=== PATIENT | female | born 1965 | race Caucasian/White ===

== ENCOUNTER 2021-03-04 16:03 | Emergency (ER) | payer OTHER ==
[~2021-03-04 16:03] MED LIST: Sodium Chloride 0.9% 100 ML BAG ONE
[2021-03-04] MEDS ORDERED: Iopamidol 370 76% 125 ML VIAL FS ONE (16:04)
[2021-03-04 17:58] LABS: #Basophils 0.1 thou/uL (0.0-0.2); #Lymphocytes 2.7 thou/uL (1.20-3.40); #Monocytes 0.7 thou/uL (0.11-0.59); #Neutrophils 6.2 thou/uL (1.40-6.50); %Basophils 0.8 % (0.0-1.0); %Eosinophils 0.3 % (0.0-10.0); %Lymphocytes 27.5 % (21.0-51.0); %Monocytes 7.6 % (0.0-10.0); %Neutrophils 63.7 % (42.0-75.0); Hemoglobin 14.6 g/dL (12.0-16.0); Mean Corpuscular HGB CONC 32.3 g/dL (32.0-36.0); Mean Corpuscular Hemoglobin 28.8 pg (27.0-31.0); Mean Corpuscular Volume 89.2 fL (78.0-98.0); Mean Platelet Volume 7.5 fL (7.4-10.4); Platelet Count 211 thou/uL (130-400); RBC Distribution Width 13.6 % (11.5-14.5); Red Blood Cell (RBC) Count 5.07 mill/uL (4.20-5.40); White Blood Cell (WBC) Count 9.7 thou/uL (4.8-10.8)
[2021-03-04] MEDS ORDERED: Aspirin Chewable 81 MG TAB ONE (18:00)
[2021-03-04] MEDS ORDERED: Ketorolac Tromethamine 30 MG/ML VIAL ONE (18:00)
[2021-03-04 18:05] LABS: PTT 39.2 sec (22.9-36.1); Prothrombin Time 13.6 sec (12.0-14.7)
[2021-03-04 18:10] LABS: Anion Gap 16 mmol/L (10-20); BUN (Urea Nitrogen) 8 mg/dL (9.8-20.1); Calc. Creatinine Clearance 0 mL/min (70-130); Calcium 9.9 mg/dL (7.8-10.44); Carbon Dioxide 25 mmol/L (22-29); Chloride 103 mmol/L (98-107); Glucose 95 mg/dL (70-105); Sodium 140 mmol/L (136-145)
[2021-03-04] MEDS ORDERED: Enoxaparin Sodium 100 MG/ML SYRINGE ONE (18:28)
== END 2021-03-04 19:15 | disposition home or self-care (01) ==
LOC: MADERS 16:03
DX: I26.99 Other pulmonary embolism without acute cor pulmonale (principal); I25.2 Old myocardial infarction; E78.5 Hyperlipidemia, unspecified; E78.00 Pure hypercholesterolemia, unspecified; F17.210 Nicotine dependence, cigarettes, uncomplicated; Z79.891 Long term (current) use of opiate analgesic; Z79.82 Long term (current) use of aspirin; Z79.899 Other long term (current) drug therapy
CPT/HCPCS: 71275; 80048; 84484; 85025; 85610; 85730; 93005; 94760; 96372; 96374; J1650; J1885; J3490; Q9967

== ENCOUNTER 2023-06-27 10:10 | Emergency (ER) | payer OTHER, SELFPAY ==
[~2023-06-27 10:10] MED LIST changes: +Iopamidol 370 76% 100 ML VIAL ONE; -Sodium Chloride 0.9% 100 ML BAG ONE
[2023-06-27] MEDS ORDERED: Ipratropium/Albuterol 3 ML NEB ONE (10:36)
[2023-06-27 11:13] LABS: ALT (SGPT) 39 U/L (8-55); AST (SGOT) 27 U/L (5-34); Albumin 3.9 g/dL (3.5-5.0); Alkaline Phosphatase 161 U/L (40-110); Anion Gap 19 mmol/L (10-20); BUN (Urea Nitrogen) 10 mg/dL (9.8-20.1); Bilirubin, Total 0.4 mg/dL (0.2-1.2); Calc. Creatinine Clearance 0 mL/min (70-130); Calcium 9.2 mg/dL (7.8-10.44); Carbon Dioxide 22 mmol/L (22-29); Chloride 104 mmol/L (98-107); Estimated GFR 102; Globulin 3.5 g/dL (2.4-3.5); Glucose 117 mg/dL (70-105); Potassium 4.5 mmol/L (3.5-5.1); Protein, Total 7.4 g/dL (6.0-8.3); Sodium 140 mmol/L (136-145); Troponin I 0.092 ng/mL (< 0.028)
[2023-06-27 11:18] LABS: Eosinophils 3 % (0-10); Hematocrit 40.1 % (36.0-47.0); Hemoglobin 12.7 g/dL (12.0-16.0); Lymphocytes 6 % (21-51); MDiff Complete? YES; Mean Corpuscular HGB CONC 31.7 g/dL (32.0-36.0); Mean Corpuscular Hemoglobin 28.7 pg (27.0-31.0); Mean Corpuscular Volume 90.6 fl (78.0-98.0); Mean Platelet Volume 7.9 fL (7.4-10.4); Monocytes 2 % (0-10); Neutrophil 83 % (42-75); Platelet Count 203 10x3/uL (130-400); RBC Distribution Width 12.8 % (11.5-14.5); Red Blood Cell (RBC) Count 4.43 mill/uL (4.20-5.40); White Blood Cell (WBC) Count 16.1 10x3/uL (4.8-10.8)
[2023-06-27 11:19] LABS: Manual Diff?? YES; RBC Morph Comment Within Normal Limits; Reactive Lymphocytes 6 % (0-10)
[2023-06-27 11:20] LABS: Platelet Adequacy Comment Appears Adequate
[2023-06-27 11:24] LABS: SARS-CoV-2 NAA Rapid Test Not Detected (NotDetected)
[2023-06-27] MEDS ORDERED: Azithromycin 500 MG VIAL ONE (11:30)
[2023-06-27] MEDS ORDERED: Sodium Chloride 0.9% 100 ML ONE (11:31)
[2023-06-27] MEDS ORDERED: cefTRIAXone (ROCEPHIN) 2 GM VIAL ONE (11:31)
[2023-06-27] MEDS ORDERED: Sodium Chloride 0.9% 250 ML 250 ML ONE (11:31)
[2023-06-27] MEDS ORDERED: Morphine 4 MG/ML VIAL ONE (14:48)
[2023-06-27] MEDS ORDERED: dilTIAZem 25 MG/5 ML VIAL ONE (17:09)
== END 2023-06-27 18:20 | disposition short-term general hospital (02) ==
LOC: MADERS 10:10
DX: J18.9 Pneumonia, unspecified organism (principal); I26.99 Other pulmonary embolism without acute cor pulmonale; I10 Essential (primary) hypertension; Z20.822 Contact with and (suspected) exposure to COVID-19; Z79.82 Long term (current) use of aspirin; Z87.891 Personal history of nicotine dependence
CPT/HCPCS: 71045; 71275; 80053; 83605; 83880; 84484; 85025; 85379; 87040; 87804; 93005; 94644; 96365; 96367; 96372; 96375; J0456; J0696; J1650; J2270; J3490; J7050; J7620; Q9967; U0002